=== PATIENT | male | born 1990 | race Two or more races ===

== ENCOUNTER 2020-02-27 13:29 | Emergency (ER) | payer MEDICAID ==
[~2020-02-27] VITALS: Ht 195.6 cm; Wt 127.6 kg
[2020-02-27 13:34] VITALS: BP 158/81
--- NOTE | 2020-02-27 13:38 | NUR ---
PT AMBULATES WELL FROM TRIAGE ROOM TO ED ROOM.
--- NOTE | 2020-02-27 13:47 | NUR ---
first contact with pt. pt stated'I got bit by something and mty right hand and left arm are swelling, but no pain, just itchy." pt's aox4. resps even and unlabored. pt denies any other sx[facility]
[2020-02-27] MEDS ORDERED: DIPHENHYDRAMINE 25 MG CAPSULE ONE (13:51)
--- NOTE | 2020-02-27 13:54 | NUR ---
medication ordered from pharmacy at this time.
[2020-02-27] MEDS ORDERED: DIPHENHYDRAMINE 25 MG CAPSULE PO ONE (14:00)
[2020-02-27] MEDS ORDERED: FAMOTIDINE 20 MG TABLET PO ONE (14:00)
--- NOTE | 2020-02-27 14:13 | NUR ---
pt medicated per emar. pt tolerated well.
--- NOTE | 2020-02-27 14:18 | NUR ---
Patient given discharge instructions and they have confirmed that they understand the instructions. Patient ambulatory with steady gait.
== END 2020-02-27 14:18 | disposition home or self-care (01) ==
LOC: ED 13:50
DX: S60.561A Insect bite (nonvenomous) of right hand, initial encounter (principal); S50.862A Insect bite (nonvenomous) of left forearm, initial encounter; L03.113 Cellulitis of right upper limb; W57.XXXA Bitten or stung by nonvenomous insect and other nonvenomous arthropods, initial encounter; Y93.89 Activity, other specified; Y92.89 Other specified places as the place of occurrence of the external cause; Y99.8 Other external cause status
CPT/HCPCS: 99283; Q0163